=== PATIENT | female | born 1960 | race Caucasian/White ===

== ENCOUNTER 2017-09-14 10:53 | Observation (INO) | payer OTHER ==
[~2017-09-14] VITALS: Ht 167.6 cm; Wt 80.3 kg
[~2017-09-14 10:53] MED LIST: AZOR 5/40 MG1 TABLET PO; BACTRIM,SEPT1 TABLET PO; BENICAR20 MG PO; CLONAZEPAM1 MG PO; PERCOCET 5/31 TABLET PO; PRAVACHOL40 MG PO; ZOFRAN ODT4 MG PO; ZOFRAN4 MG PO
[2017-09-14 11:26] LABS: HEMATOCRIT 40.8 % (36.0-46.0); HEMOGLOBIN 14.1 G/DL (11.9-15.5); MCHC 34.6 G/DL (30.0-36.0); MCV 89.7 FL (83-99); PLATELET COUNT 167 K/uL (156-360); RBC DIS.WIDTH-SD 43.1 % (39-53); RED BLOOD COUNT 4.55 M/uL (3.80-5.20); WHITE BLOOD COUNT 5.1 K/uL (4.1-10.2)
[2017-09-14 11:42] LABS: CHLORIDE 108 mEq/L (99-109); POTASSIUM 4.2 mEq/L (3.7-5.4); SODIUM 144 mEq/L (136-147)
[2017-09-14 11:43] LABS: GLUCOSE 106 mg/dL (70-99)
[2017-09-14 11:47] LABS: CREATININE 0.8 mg/dL (0.6-1.3); GFR ESTIMATE (CALCULATED) > 59 mL/min/
[2017-09-14 11:48] LABS: UREA NITROGEN (BUN) 17 mg/dL (9-23)
[2017-09-14 11:51] LABS: TROP-I INTERPRETATION NEGATIVE; TROPONIN-I < 0.01 ng/mL (0.0-0.30)
[2017-09-14 14:01] LABS: TROP-I INTERPRETATION NEGATIVE; TROPONIN-I < 0.01 ng/mL (0.0-0.30)
[2017-09-14] MEDS ORDERED: EXCEDRIN MIGRA1 EAC3 PO (14:22)
[2017-09-14] MEDS ORDERED: DIOVAN160 MG PO (14:22)
[2017-09-14] MEDS ORDERED: NORVASC10 MG PO (14:22)
[2017-09-14] MEDS ORDERED: ESTRACE42.5 GM VG (14:23)
[2017-09-14] MEDS ORDERED: VISINE ADVANCED15 ML BOTH EYES (14:23)
[2017-09-14] MEDS ORDERED: CLARITIN,ALAVAR10 MG PO (14:24)
[2017-09-14 16:08] VITALS: BP 166/91
[2017-09-14 19:00] VITALS: BP 141/79
[2017-09-14 20:07] LABS: TROP-I INTERPRETATION NEGATIVE; TROPONIN-I 0.01 ng/mL (0.0-0.30)
[2017-09-14 23:42] VITALS: BP 117/75
[2017-09-15 02:22] LABS: TROP-I INTERPRETATION NEGATIVE; TROPONIN-I 0.02 ng/mL (0.0-0.30)
[2017-09-15 02:47] LABS: HDL CHOLESTEROL 55 MG/DL (Desirable>=50); LDL CHOLESTEROL 109 mg/dL (Desirable<100); NON-HDL CHOLESTEROL 153 mg/dL (Desirable<160); TOTAL CHOLESTEROL 208 mg/dL (Desirable<200); TRIGLYCERIDES 219 MG/DL (Normal: <150)
[2017-09-15 07:50] VITALS: BP 126/88
[2017-09-15] MEDS ORDERED: LOPRESSOR25 MG PO (10:55)
[2017-09-15 12:23] VITALS: BP 134/76
== END 2017-09-15 15:20 | disposition home or self-care (01) ==
LOC: EME 10:53 → EDOF 14:24 → 4SOUTH 14:24 → ENRESERV 14:27 → 4SOUTH 15:10 → ENPENDDIS 09-15 11:20 → 4SOUTH 09-15 15:20
PROVIDERS: Emergency Medicine; Internal Medicine
DX: R07.89 Other chest pain (principal); I10 Essential (primary) hypertension; R73.03 Prediabetes; E78.5 Hyperlipidemia, unspecified; R06.02 Shortness of breath; M79.602 Pain in left arm; Z90.49 Acquired absence of other specified parts of digestive tract; Z87.442 Personal history of urinary calculi; Z82.49 Family history of ischemic heart disease and other diseases of the circulatory system
CPT/HCPCS: 71046; 80048; 80061; 83036; 84484; 85027; 85379; 93005; 99281; 99285; G0378; J1644

== ENCOUNTER → 2017-10-09 | Outpatient (CLI) | payer OTHER ==
[~2017-10-09] VITALS: Ht 167.6 cm; Wt 80.7 kg
[~2017-10-09] MED LIST changes: +CEFTIN500 MG PO; +CLARITIN,ALAVAR10 MG PO; +DIOVAN160 MG PO; +ENDOCET 5-3251 EACH PO; +ESTRACE42.5 GM VG; +EXCEDRIN MIGRA1 EAC3 PO; +LOPRESSOR25 MG PO; +NORVASC10 MG PO; +TAMSULOSIN HCL0.4 MG PO; +VISINE ADVANCED15 ML BOTH EYES
== END | disposition home or self-care (01) ==
LOC: AMB 09:39
PROC: 0TF3XZZ Fragmentation in Right Kidney Pelvis, External Approach (ICD-10-PCS; principal; 2017-10-09)
DX: N20.0 Calculus of kidney (principal)
CPT/HCPCS: 74021; J1100; J1885; J2250; J2405; J3010

== ENCOUNTER 2017-10-10 00:39 | Observation (INO) | payer OTHER ==
[~2017-10-10] VITALS: Ht 167.6 cm; Wt 80.6 kg
[~2017-10-10 00:39] MED LIST changes: -CEFTIN500 MG PO; -ENDOCET 5-3251 EACH PO; -TAMSULOSIN HCL0.4 MG PO
[2017-10-10 02:39] LABS: BASOPHIL (%) 0.2 % (0-1); EOSINOPHIL (%) 0 % (0-5); HEMOGLOBIN 14.7 G/DL (11.9-15.5); IMMATURE GRANULOCYTE (%) 0.3 % (0.0-0.7); LYMPHOCYTE (%) 5.9 % (15-42); LYMPHOCYTE COUNT 0.9 K/uL (1.0-2.8); MCV 88.6 FL (83-99); MONOCYTE (%) 5.4 % (3-12); MONOCYTE COUNT 0.8 K/uL (0-0.8); NEUTROPHIL (%) 88.2 % (45-76); NEUTROPHIL COUNT 13.3 K/uL (1.8-6.4); PLATELET COUNT 171 K/uL (156-360); RBC DIS.WIDTH-CV 12.6 % (11.8-14.6); RBC DIS.WIDTH-SD 41.3 % (39-53); RED BLOOD COUNT 4.74 M/uL (3.80-5.20)
[2017-10-10 02:53] LABS: CHLORIDE 101 mEq/L (99-109); POTASSIUM 3.8 mEq/L (3.7-5.4); SODIUM 139 mEq/L (136-147)
[2017-10-10 02:54] LABS: GLUCOSE 193 mg/dL (70-99)
[2017-10-10 02:58] LABS: CREATININE 1.1 mg/dL (0.6-1.3); GFR ESTIMATE (CALCULATED) 54 mL/min/
[2017-10-10 02:59] LABS: UREA NITROGEN (BUN) 15 mg/dL (9-23)
[2017-10-10 07:17] LABS: APPEARANCE CLEAR ((CLEAR)); BILIRUBIN NEGATIVE; BLOOD MODERATE; COLOR YELLOW ((YELLOW)); GLUCOSE (STRIP) 150; KETONES 20; LEUKOCYTES NEGATIVE; NITRITE NEGATIVE; PROTEIN (STRIP) 30; SPECIFIC GRAVITY 1.011 (1.000-1.030); UROBILINOGEN 0.2 MG/DL (0.2-1.0)
[2017-10-10 07:32] LABS: BACTERIA RARE /HPF; EPITHELIAL CELLS 1+ /HPF; MUCUS TRACE /LPF; UCUL ADDED? YES
[2017-10-10] MEDS ORDERED: ENDOCET 5-3251 EACH PO (07:35)
[2017-10-10 07:50] VITALS: BP 144/78
[2017-10-10 11:18] VITALS: BP 110/66
[2017-10-10 15:47] VITALS: BP 132/63
[2017-10-10 19:10] VITALS: BP 120/711
[2017-10-10 23:50] VITALS: BP 123/72
[2017-10-11 05:52] LABS: HEMATOCRIT 31.1 % (36.0-46.0); MCH 30.7 PG (29.0-34.0); MCHC 34.1 G/DL (30.0-36.0); MCV 90.1 FL (83-99); PLATELET COUNT 132 K/uL (156-360); RBC DIS.WIDTH-CV 13.3 % (11.8-14.6); RBC DIS.WIDTH-SD 43.8 % (39-53); WHITE BLOOD COUNT 6.8 K/uL (4.1-10.2)
[2017-10-11 05:53] LABS: HEMOGLOBIN 10.6 G/DL (11.9-15.5); RED BLOOD COUNT 3.45 M/uL (3.80-5.20)
[2017-10-11 06:14] LABS: CHLORIDE 113 MEQ/L (99-109); CREATININE 1.2 MG/DL (0.6-1.3); GFR ESTIMATE (CALCULATED) 49 mL/min/; GLUCOSE 108 mg/dL (70-99); POTASSIUM 3.8 MEQ/L (3.7-5.4); SODIUM 143 MEQ/L (136-147); UREA NITROGEN (BUN) 12 mg/dL (9-23)
[2017-10-11 08:00] VITALS: BP 150/79
[2017-10-11 08:17] VITALS: BP 160/74
[2017-10-11 11:32] VITALS: BP 133/73
[2017-10-11 11:33] VITALS: BP 150/73
[2017-10-11 15:28] VITALS: BP 134/67
[2017-10-11 19:00] VITALS: BP 149/84
[2017-10-12 00:01] VITALS: BP 155/85
[2017-10-12 03:52] VITALS: BP 133/84
[2017-10-12 05:28] LABS: HEMATOCRIT 30.5 % (36.0-46.0); HEMOGLOBIN 10.3 G/DL (11.9-15.5); MCH 30.3 PG (29.0-34.0); MCHC 33.8 G/DL (30.0-36.0); MCV 89.7 FL (83-99); PLATELET COUNT 126 K/uL (156-360); RBC DIS.WIDTH-CV 13.1 % (11.8-14.6); RBC DIS.WIDTH-SD 43.2 % (39-53); WHITE BLOOD COUNT 7.9 K/uL (4.1-10.2)
[2017-10-12 06:14] LABS: CHLORIDE 113 MEQ/L (99-109); CREATININE 0.9 MG/DL (0.6-1.3); GFR ESTIMATE (CALCULATED) > 59 mL/min/; GLUCOSE 121 mg/dL (70-99); POTASSIUM 3.7 MEQ/L (3.7-5.4); SODIUM 142 MEQ/L (136-147); UREA NITROGEN (BUN) 17 mg/dL (9-23)
[2017-10-12] MEDS ORDERED: TAMSULOSIN HCL0.4 MG PO (11:13)
[2017-10-12 11:29] VITALS: BP 194/107
[2017-10-12] MEDS ORDERED: CEFTIN500 MG PO (11:35)
[2017-10-12 11:46] VITALS: BP 172/91; BP 183/91
== END 2017-10-12 14:35 | disposition home or self-care (01) ==
LOC: EME 00:39 → EDOF 05:27 → 4SOUTH 05:27 → ENRESERV 05:40 → 4SOUTH 07:39
PROVIDERS: Emergency Medicine; Family Medicine; Internal Medicine; Physician Assistant
DX: N13.2 Hydronephrosis with renal and ureteral calculous obstruction (principal); I10 Essential (primary) hypertension; R73.03 Prediabetes; Z82.49 Family history of ischemic heart disease and other diseases of the circulatory system; Z79.82 Long term (current) use of aspirin; K21.9 Gastro-esophageal reflux disease without esophagitis; Z87.440 Personal history of urinary (tract) infections; Z87.442 Personal history of urinary calculi; Z90.710 Acquired absence of both cervix and uterus; Z90.49 Acquired absence of other specified parts of digestive tract
CPT/HCPCS: 74018; 74176; 76000; 80048; 81003; 82948; 85025; 85027; 87086; 99281; 99285; C2625; G0378; J0696; J1100; J1644; J1885; J2250; J2270; J2405; J3010; J7030; J7040